=== PATIENT | female | born 1995 | race African-American/Black ===

== ENCOUNTER 2016-08-21 14:12 | Emergency (ER) | payer OTHER | END 2016-08-21 18:08 | disposition home or self-care (01) | LOC: ER 14:12 | DX: R55 Syncope and collapse (principal); R11.2 Nausea with vomiting, unspecified; R19.7 Diarrhea, unspecified; G43.909 Migraine, unspecified, not intractable, without status migrainosus | CPT/HCPCS: 36415; 87502; 96361; 96374; 96375 ==